=== PATIENT | female | born 1995 | race African-American/Black ===

== ENCOUNTER 2019-10-07 15:17 | Emergency (ER) | payer OTHER, SELFPAY ==
[2019-10-07 15:20] VITALS: BP 126/58; PULSE 76; RESP 12; TEMP 36.8; O2SAT 99
--- NOTE | 2019-10-07 15:25 | ED.GENADULT ---
HPI - General Adult General Chief complaint: Vaginal Bleeding Stated complaint: thinks miscarrying Time Seen by Provider: 10/07/19 15:23 Source: patient Mode of arrival: Ambulatory Limitations: no limitations History of Present Illness HPI narrative: 24-year-old female at approximately 6 weeks EGA [place] [employer] [place] States that yesterday she started having pink vaginal bleeding and then turned and a brown vaginal bleeding. She states that this morning had increase in cramping and bleeding with clots as much as a menstrual cycle. Here because she thinks she is having a miscarriage. Review of Systems Constitutional Constitutional: Denies fever(s) and Denies headache(s) ENT Ears, Nose, Mouth, and Throat: Denies headache(s) Cardiovascular Cardiovascular: Denies chest pain and Denies dyspnea Respiratory Respiratory: Denies dyspnea Gastrointestinal Gastrointestinal: Reports cramping, Denies nausea and Denies vomiting Genitourinary Genitourinary: Denies dysuria and Reports vaginal discharge Musculoskeletal Musculoskeletal: Denies back pain, Denies myalgias and Denies arthralgias Integumentary/Breasts Skin/Breast: Denies lesions and Denies rash Neurologic Neurologic: Denies behavioral changes and Denies headache(s) Psychiatric Psychiatric: Denies behavioral changes Hematologic/Lymphatic Hematologic/Lymphatic: Denies easy bleeding and Denies easy bruising Patient History Medical History Healthy adult (Acute) Social History Smoking Status: Never smoker Exam Initial Vital Signs Initial Vital Signs: Vital Signs Temperature 98.2 F 10/07/19 15:20 Pulse Rate 76 10/07/19 15:20 Respiratory Rate 12 10/07/19 15:20 Blood Pressure 126/58 L 10/07/19 15:20 Pulse Oximetry 99 10/07/19 15:20 Const General: cooperative, comfortable, well developed and well groomed Limitations: mental status not altered HENMT Head: normal to inspection and normocephalic Resp Effort & Inspection: normal respiratory effort Cardio Rate: regular rate GI Inspection: non-distended Palpation: soft, No firm and No tender Back/Spine/Pelvis Back: No CVA tenderness Skin Lesions: no lesions Rashes: no rashes Neuro General: alert and awake Cognition: normal cognition Speech: speech normal Extrem General: normal to inspection and capillary refill normal Psych Appearance: grossly normal and well kempt Scores GCS [place] coma scale eye opening: Spontaneous [place] coma scale verbal response: Orientated [place] coma scale motor response: Obey commands [place] coma scale total score: 15 Course Orders Ordered: ED Orders 10/07/19 15:24 OB <= 14 weeks fetus Stat 10/07/19 15:39 ABO RH Type Stat Complete Blood Count AUTO DIFF Stat HCG Quantitative /Beta subunit Stat Vital Signs Vital signs: Vital Signs - 8 hr 10/07/19 15:20 Temperature 98.2 F Pulse Rate 76 Respiratory Rate 12 Blood Pressure 126/58 L Pulse Oximetry 99 Medical Decision Making Lab Data Lab results reviewed: Yes I reviewed the patient's lab results. Result diagrams: 10/07/19 15:39 Labs: Lab Results 10/07/19 10/07/19 10/07/19 Range/Units 15:39 15:39 15:39 WBC 8.7 (4.5-11.0) X10^3/uL RBC 4.24 (4.0-5.2) X10^6/uL Hgb 13.0 (12.0-16.0) g/dL Hct 39.2 (36-46) % MCV 92.4 (80-100) fL MCH 30.5 (26-34) PG MCHC 33.1 (30-36) % RDW 13.5 (11.6-14.8) % Plt Count 356 (150-400) X10^3/uL Neut % (Auto) 67.2 (50-75) % Lymph % (Auto) 21.1 L (25-40) % [place] % (Auto) 8.9 (3-14) % Eos % (Auto) 2.0 (2-4) % Baso % (Auto) 0.8 (0-2) % Neut # (Auto) 5900 (3293-7334) /uL Lymph # (Auto) 1800 (6141-7377) /uL [place] # (Auto) 800 (0-900) /uL Eos # (Auto) 200 (0-450) /uL Baso # (Auto) 100 (0-100) /uL HCG, Quant 1119.5 mIU/mL Blood Type O Positive Point of Care Testing Test Results Positive Point of care testing: Point of Care Testing Test Results Positive Imaging Data US - OB: Radiologist's Impression: [address] [address] Ultrasound Report Signed Patient: Amilcar Barahona TMR#: [id number] : 1995Acct:[id number] Age/Sex: 24 / FDate of Service: 10/07/19 Loc: ED Accession Number: [id number] Procedure: US OB <= 14 weeks fetus Ordering Provider: Brenden Moe D.O. PROCEDURE: US OB <= 14 WEEKS FETUS INDICATIONS: VAGINAL BLEEDING POTENTIAL MISCARRIAGE OUTSIDE/PRIOR DATING DATA: Last menstrual period (LMP): 08/13/19. LMP-based estimated date of delivery (MILLY): 05/22/20. TECHNIQUE: Real-time scanning was performed of the fetus and maternal pelvic organs, with image documentation. Endovaginal scanning was also performed to better visualize the fetus and maternal ovaries. COMPARISON: None. FINDINGS: Maternal organs: The uterus measures 9.3 x 4.1 x 4.9 cm. The endometrium is thickened, measuring up to 1.5 cm in the lower uterine segment. There is mild internal heterogeneity within the endometrium with a small hypoechoic component, but no discrete gestational sac is visualized. No internal vascularity within the endometrium on color Doppler interrogation. There are small nabothian cysts. The right ovary measures 5.0 x 2.8 x 2.8 cm and the left ovary measures 2.4 x 1.7 x 1.7 cm. There is a thickwalled in the right ovary measuring up to 1.7 x 1.5 x 1.4 cm. There is also a 2nd thickwalled cystic structure in the right ovary measuring up to 2.2 x 1.8 x 2.0 cm. No other discrete adnexal masses identified. IMPRESSION: 1. No intrauterine gestational sac identified. Heterogeneous thickening of the endometrium demonstrated which may reflect a spontaneous in progress. 2. 2 thickwalled cystic structures demonstrated in the right ovary. The findings are nonspecific and one of the structures may represent a corpus luteal cyst. However, an ectopic cannot be excluded. Recommend continued followup clinically and a repeat study if indicated. Dictated by: Luis Pimentel M.D. on 10/07/2019 at 16:48 Approved by: Luis Pimentel M.D. on 10/07/2019 at 16:54 MDM Narrative Medical decision making narrative: Rh positive. Patient's beta hCG level is below the discriminatory zone however the other findings on the ultrasound are concerning for a threatened miscarriage. I did inform the patient that it is important that she be followed up in 48 hours for repeat blood draw to make sure that the level is decreasing. We did discuss return precautions and follow-up instructions. Informed her that if [place] repeat exam performed that she should return to the emergency department. She expressed understanding and agreement. Discharge Plan Departure Patient Disposition: Home Clinical Impression: Threatened miscarriage Instructions: Dealing With Miscarriage, DI for Miscarriage Activity Restrictions/Additional Instructions: Your exam head ultrasound and labs today is concerning for a miscarriage. It is important that you follow-up in 48 hours for a repeat blood draw. [place] If you cannot get in to see your primary provider please return to the emergency department. Return to the emergency department sooner for any increasing pain, bleeding multiple pads an hour for multiple hours, lightheadedness, or any other new or worsening symptoms
[2019-10-07 15:50] LABS: Add Manual Diff / Slide Review NO; Basophils Absolute Auto 100 /uL (0-100); Basophils Percent Auto 0.8 % (0-2); Eosinophils Absolute Auto 200 /uL (0-450); Hematocrit 39.2 % (36-46); Lymphocytes Absolute Auto 1800 /uL (1100-4500); Lymphocytes Percent Auto 21.1 % (25-40); Mean Corpuscular HGB Conc 33.1 % (30-36); Mean Corpuscular Hemoglobin 30.5 PG (26-34); Mean Corpuscular Volume 92.4 fL (80-100); Monocytes Absolute Auto 800 /uL (0-900); Monocytes Percent Auto 8.9 % (3-14); Neutrophils Absolute Auto 5900 /uL (1500-7000); Neutrophils Percent Auto 67.2 % (50-75); Platelet Count 356 X10^3/uL (150-400); Red Blood Cell Count 4.24 X10^6/uL (4.0-5.2); Red Cell Distribution Width 13.5 % (11.6-14.8); White Blood Cell Count 8.7 X10^3/uL (4.5-11.0)
[2019-10-07 16:21] LABS: HCG Quantitative /Beta subunit 1119.5 mIU/mL
[2019-10-07 17:29] VITALS: BP 122/78; PULSE 78; RESP 17; O2SAT 98
== END 2019-10-07 17:30 | disposition home or self-care (01) ==
PROVIDERS: Emergency Provider Emergency Medicine
DX: O20.0 Threatened abortion (principal); Z3A.01 Less than 8 weeks gestation of pregnancy
CPT/HCPCS: 36415; 76801; 76817; 81025; 84702; 85025; 86900; 86901; 99284

== ENCOUNTER 2020-05-14 14:41 | Emergency (ER) | payer OTHER, SELFPAY ==
[2020-05-14 14:52] VITALS: BP 142/71; PULSE 84; RESP 12; TEMP 36.2; O2SAT 100; BMI 41.3
--- NOTE | 2020-05-14 15:03 | DI.US.S_ITS ---
PROCEDURE: US OB <= 14 WEEKS FETUS INDICATIONS: CRAMPING, BLEEDING OUTSIDE/PRIOR DATING DATA: Last menstrual period (LMP): 02/26/2020 LMP-based estimated date of delivery (MILLY): 12/02/2020 First dating scan (date and location): [facility], 05/14/2020 Estimated date of delivery (MILLY) from first dating scan: Not applicable TECHNIQUE: Real-time scanning was performed of the fetus and maternal pelvic organs, with image documentation. Endovaginal scanning was also performed to better visualize the fetus and maternal ovaries. COMPARISON: [facility], , OB <= 14 WEEKS FETUS, 10/07/2019, 15:54. FINDINGS: Embryo: An intrauterine gestational sac is seen, with a pole seen that measures up to 1.5 cm in length, which corresponds to an estimated gestational age of 7 weeks 5 days. No cardiac activity is seen, despite multiple attempts. Measurement variability in dating: +/- 4 weeks by LMP, +/- 7 days by mean sac diameter (use before 6 weeks gestation if crown-rump length not able to be measured), +/- 5 days by crown-rump length (up to 8 weeks 6 days gestation), +/- 7 days by crown-rump length (up to 13 weeks 6 days gestation). Maternal organs: The right ovary is not seen. The left ovary is unremarkable. Limited images through the kidneys demonstrate no hydronephrosis. IMPRESSION: demise, with a nonviable intrauterine gestation, without cardiac activity. Dictated by: Jonathan Judge M.D. on 05/14/2020 at 15:04 Approved by: Jonathan Judge M.D. on 05/14/2020 at 15:06
[2020-05-14 15:13] LABS: Appearance Urine UA CLOUDY; Bilirubin Urine UA NEGATIVE (NEGATIVE); Color Urine UA RED; Glucose Urine UA NEGATIVE (Negative); Ketones Urine UA NEGATIVE (NEGATIVE); Leukocyte Esterase Urine UA NEGATIVE (NEGATIVE); Nitrite Urine UA NEGATIVE (Negative); Occult Blood Urine UA 3+ (Negative); Protein Urine UA 1+ (Negative); Urobilinogen Urine UA 0.2 E.U./dL (0.2)
[2020-05-14 15:15] LABS: pH Urine UA 7.5 (4.5-8.0)
[2020-05-14 15:20] LABS: Amorphous Sediment Urine 1+; Bacteria Urine Few (2-10); Culture Indicated Urine Cult Not Indicated; RBC Urine >100/HPF (0-5/HPF); Squamous Epithelial Cell Urine 1-5 /HPF (0-5/HPF); WBC Urine 0-1/HPF (0-5/HPF)
--- NOTE | 2020-05-14 15:22 | ED.GENADULT ---
HPI - General Adult General Chief complaint: OB/Uterine Contractions Stated complaint: 10WKS , SEVERE CRAMPS Time Seen by Provider: 05/14/20 15:02 Source: patient Mode of arrival: Ambulatory Limitations: no limitations History of Present Illness HPI narrative: Otherwise healthy 24-year-old at approximately 10 weeks EGA based off of last menstrual cycle the tear for evaluation of abdominal cramping that started this morning and then bright red blood per the vagina this afternoon. She also states that her cramping has continued throughout the day. Denies any urinary or GI symptoms. States she had a miscarriage earlier this year which she passed spontaneously without any intervention. Related Data Allergies Allergy/AdvReac Type Severity Reaction Status Date / Time No Known Drug Allergies Allergy Verified 05/14/20 14:56 Review of Systems Constitutional Constitutional: Denies fever(s) Cardiovascular Cardiovascular: Denies chest pain and Denies dyspnea Respiratory Respiratory: Denies dyspnea Gastrointestinal Gastrointestinal: Reports cramping, Denies nausea and Denies vomiting Genitourinary Genitourinary: Denies dysuria Genitourinary: Denies dysuria Musculoskeletal Musculoskeletal: Denies arthralgias and Denies myalgias Integumentary/Breasts Skin/Breast: Denies rash Neurologic Neurologic: Denies behavioral changes Psychiatric Psychiatric: Denies behavioral changes Hematologic/Lymphatic Hematologic/Lymphatic: Denies easy bleeding and Denies easy bruising Allergic/Immunologic Allergic/Immunologic: Denies urticaria Patient History Medical History (Updated 05/14/20 @ 16:32 by Brenden Moe DO) Healthy adult Social History Smoking Status: Never smoker Smoking Status: Never smoker alcohol intake frequency: 0-2 drinks per day Substance Use Type: does not use Exam Initial Vital Signs Initial Vital Signs: Vital Signs Temperature 97.2 F L 05/14/20 14:52 Pulse Rate 84 05/14/20 14:52 Respiratory Rate 12 05/14/20 14:52 Blood Pressure 142/71 H 05/14/20 14:52 Pulse Oximetry 100 05/14/20 14:52 Const General: cooperative and comfortable Limitations: mental status not altered HENMT Head: normal to inspection and normocephalic Resp Effort & Inspection: normal respiratory effort Cardio Rate: regular rate GI Inspection: non-distended Skin Lesions: no lesions Rashes: no rashes Neuro General: patient alert and patient awake Cognition: normal cognition Speech: speech normal Extrem General: normal to inspection Psych Appearance: grossly normal and well kempt Course Orders Ordered: ED Orders 05/14/20 14:51 Urinalysis and Microscopic Stat Urine Culture Stat 05/14/20 15:03 US OB <= 14 weeks fetus Stat 05/14/20 15:30 ABO RH Type Stat Basic Metabolic Panel Stat Complete Blood Count AUTO DIFF Stat HCG Quantitative /Beta subunit Stat Discontinued Medications Acetaminophen (Acetaminophen 325 Mg Tablet) 650 mg PO NOW ONE Stop: 05/14/20 16:08 Last Admin: 05/14/20 16:16 Dose: 650 mg Documented by: Vital Signs Vital signs: Vital Signs - 8 hr 05/14/20 14:52 05/14/20 15:58 Temperature 97.2 F L Pulse Rate 84 80 Respiratory Rate 12 16 Blood Pressure 142/71 H 134/79 Pulse Oximetry 100 98 Medical Decision Making Lab Data Lab results reviewed: Yes I reviewed the patient's lab results. Result diagrams: 05/14/20 15:30 05/14/20 15:30 Labs: Lab Results 05/14/20 05/14/20 05/14/20 Range/Units 14:51 15:30 15:30 WBC 8.9 (4.5-11.0) X10^3/uL RBC 4.31 (4.0-5.2) X10^6/uL Hgb 13.3 (12.0-16.0) g/dL Hct 39.0 (36-46) % MCV 90.6 (80-100) fL MCH 30.8 (26-34) PG MCHC 34.0 (30-36) % RDW 13.2 (11.6-14.8) % Plt Count 330 (150-400) X10^3/uL Neut % (Auto) 64.9 (50-75) % Lymph % (Auto) 21.0 L (25-40) % [place] % (Auto) 9.7 (3-14) % Eos % (Auto) 3.2 (2-4) % Baso % (Auto) 1.2 (0-2) % Neut # (Auto) 5800 (6634-8809) /uL Lymph # (Auto) 1900 (1400-9721) /uL [place] # (Auto) 900 (0-900) /uL Eos # (Auto) 300 (0-450) /uL Baso # (Auto) 100 (0-100) /uL Sodium 137 (137-145) mmol/L Potassium 3.7 (3.4-5.1) mmol/L Chloride 104 (98-107) mmol/L Carbon Dioxide 28 (22-32) mmol/L BUN 9 (7-17) mg/dL Creatinine 0.52 (0.52-1.04) mg/dL Estimated GFR > 60.0 (>60) mL/min BUN/Creatinine Ratio 17.3 (6-22) Glucose 100 (70-100) mg/dL Calcium 9.3 (8.4-10.2) mg/dL HCG, Quant 22602 mIU/mL Urine Color Red Urine Appearance Cloudy Urine pH 7.5 (4.5-8.0) Ur Specific [place] 1.020 (1.000-1.035) Urine Protein 1+ H (Negative) Urine Glucose (UA) Negative (Negative) g/dL Urine Ketones Negative (NEGATIVE) Urine Occult Blood 3+ H (Negative) Urine Nitrate Negative (Negative) Urine Bilirubin Negative (NEGATIVE) Urine Urobilinogen 0.2 (0.2) E.U./dL Ur Leukocyte Esterase Negative (NEGATIVE) Urine RBC >100/hpf H (0-5/HPF) Urine WBC 0-1/hpf (0-5/HPF) Ur Squamous Epith Cells 1-5 /hpf (0-5/HPF) Amorphous Sediment 1+ Urine Bacteria Few (2-10) H (None) Ur Culture Indicated? Cult not indicated Blood Type 05/14/20 Range/Units 15:30 WBC (4.5-11.0) X10^3/uL RBC (4.0-5.2) X10^6/uL Hgb (12.0-16.0) g/dL Hct (36-46) % MCV (80-100) fL MCH (26-34) PG MCHC (30-36) % RDW (11.6-14.8) % Plt Count (150-400) X10^3/uL Neut % (Auto) (50-75) % Lymph % (Auto) (25-40) % [place] % (Auto) (3-14) % Eos % (Auto) (2-4) % Baso % (Auto) (0-2) % Neut # (Auto) (9541-8999) /uL Lymph # (Auto) (5426-9958) /uL [place] # (Auto) (0-900) /uL Eos # (Auto) (0-450) /uL Baso # (Auto) (0-100) /uL Sodium (137-145) mmol/L Potassium (3.4-5.1) mmol/L Chloride (98-107) mmol/L Carbon Dioxide (22-32) mmol/L BUN (7-17) mg/dL Creatinine (0.52-1.04) mg/dL Estimated GFR (>60) mL/min BUN/Creatinine Ratio (6-22) Glucose (70-100) mg/dL Calcium (8.4-10.2) mg/dL HCG, Quant mIU/mL Urine Color Urine Appearance Urine pH (4.5-8.0) Ur Specific [place] (1.000-1.035) Urine Protein (Negative) Urine Glucose (UA) (Negative) g/dL Urine Ketones (NEGATIVE) Urine Occult Blood (Negative) Urine Nitrate (Negative) Urine Bilirubin (NEGATIVE) Urine Urobilinogen (0.2) E.U./dL Ur Leukocyte Esterase (NEGATIVE) Urine RBC (0-5/HPF) Urine WBC (0-5/HPF) Ur Squamous Epith Cells (0-5/HPF) Amorphous Sediment Urine Bacteria (None) Ur Culture Indicated? Blood Type O Positive Imaging Data US - OB: Radiologist's Impression: [address] [id number] ReportSigned Patient: Amilcar Barahona TMR#: [id number]: 1995Acct:[id number]/Sex: 24 / FDate of Service: 05/14/20Loc: EDAccession Number: [id number] Procedure: US OB <= 14 weeks fetus Ordering Provider: Brenden Moe D.O. PROCEDURE: US OB <= 14 WEEKS FETUS INDICATIONS: CRAMPING, BLEEDING OUTSIDE/PRIOR DATING DATA: Last menstrual period (LMP): 02/26/2020 LMP-based estimated date of delivery (MILLY): 12/02/2020 First dating scan (date and location): [facility], 05/14/2020 Estimated date of delivery (MILLY) from first dating scan: Not applicable TECHNIQUE: Real-time scanning was performed of the fetus and maternal pelvic organs, with image documentation. Endovaginal scanning was also performed to better visualize the fetus and maternal ovaries. COMPARISON: [facility], , OB <= 14 WEEKS FETUS, 10/07/2019, 15:54. FINDINGS: Embryo: An intrauterine gestational sac is seen, with a pole seen that measures up to 1.5 cm in length, which corresponds to an estimated gestational age of 7 weeks 5 days. No cardiac activity is seen, despite multiple attempts. Measurement variability in dating: +/- 4 weeks by LMP, +/- 7 days by mean sac diameter (use before 6 weeks gestation if crown-rump length not able to be measured), +/- 5 days by crown-rump length (up to 8 weeks 6 days gestation), +/- 7 days by crown-rump length (up to 13 weeks 6 days gestation). Maternal organs: The right ovary is not seen. The left ovary is unremarkable. Limited images through the kidneys demonstrate no hydronephrosis. IMPRESSION: demise, with a nonviable intrauterine gestation, without cardiac activity. Dictated by: Jonathan Judge M.D. on 05/14/2020 at 15:04 Approved by: Jonathan Judge M.D. on 05/14/2020 at 15:06 MDM Narrative Medical decision making narrative: Patient is Rh positive. Labs unremarkable. Ultrasound does show was consistent with a miscarriage. I did discuss this with the patient. Informed her with the ultrasound was showing to us. Informed her which she could potentially expect over the next couple days. She stated that she understood this is she had a miscarriage earlier this year. We also discussed return precautions. She is going to talk with her OB doctor on Saturday. She expressed understanding and agreement plan. Discharge Plan Departure Patient Disposition: Home Clinical Impression: Miscarriage Instructions: DI for Miscarriage Activity Restrictions/Additional Instructions: I would expect some more bleeding over the next couple days. If your bleeding more than several pads an hour for several hours in a row please return to the emergency department. Also return if you start having fevers or worsening pain. Contact your OB provider on Saturday for follow-up. Continue to take your vitamins.
[2020-05-14 15:46] LABS: Add Manual Diff / Slide Review NO; Basophils Absolute Auto 100 /uL (0-100); Basophils Percent Auto 1.2 % (0-2); Eosinophils Absolute Auto 300 /uL (0-450); Eosinophils Percent Auto 3.2 % (2-4); Hemoglobin 13.3 g/dL (12.0-16.0); Lymphocytes Absolute Auto 1900 /uL (1100-4500); Mean Corpuscular Hemoglobin 30.8 PG (26-34); Mean Corpuscular Volume 90.6 fL (80-100); Monocytes Absolute Auto 900 /uL (0-900); Monocytes Percent Auto 9.7 % (3-14); Neutrophils Absolute Auto 5800 /uL (1500-7000); Neutrophils Percent Auto 64.9 % (50-75); Platelet Count 330 X10^3/uL (150-400); Red Blood Cell Count 4.31 X10^6/uL (4.0-5.2); Red Cell Distribution Width 13.2 % (11.6-14.8); White Blood Cell Count 8.9 X10^3/uL (4.5-11.0)
[2020-05-14 15:54] LABS: BUN Creatinine Ratio 17.3 (6-22); Blood Urea Nitrogen 9 mg/dL (7-17); Calcium 9.3 mg/dL (8.4-10.2); Carbon Dioxide 28 mmol/L (22-32); Chloride 104 mmol/L (98-107); Estimated Glomerular Filt Rate > 60.0 mL/min (>60); Glucose 100 mg/dL (70-100); HEMOLYSIS < 15 (0-50); Potassium 3.7 mmol/L (3.4-5.1); Sodium 137 mmol/L (137-145)
[2020-05-14 15:58] VITALS: BP 134/79; PULSE 80; RESP 16; O2SAT 98
[2020-05-14 16:11] LABS: HCG Quantitative /Beta subunit 12345 mIU/mL
[2020-05-14] MEDS: ACETAMINOPHEN 325 MG TABLET 650 MG PO (16:16)
== END 2020-05-14 16:42 | disposition home or self-care (01) ==
PROVIDERS: Emergency Provider Emergency Medicine
DX: O03.9 Complete or unspecified spontaneous abortion without complication (principal)
CPT/HCPCS: 36415; 76801; 76817; 80048; 81001; 84702; 85025; 86900; 86901; 87086; 99284

== ENCOUNTER → 2024-07-10 15:40 | Outpatient (CLI) | payer OTHER, SELFPAY ==
[2024-07-10 16:21] LABS: Add Manual Diff / Slide Review NO; Basophils Absolute Auto 0 /uL (0-100); Basophils Percent Auto 0.4 % (0-2); Eosinophils Absolute Auto 200 /uL (0-450); Eosinophils Percent Auto 2.9 % (2-4); Hematocrit 38.6 % (36-46); Lymphocytes Absolute Auto 1500 /uL (1100-4500); Lymphocytes Percent Auto 18.5 % (25-40); Mean Corpuscular HGB Conc 33.7 % (30-36); Mean Corpuscular Hemoglobin 30.3 PG (26-34); Mean Corpuscular Volume 89.9 fL (80-100); Monocytes Absolute Auto 900 /uL (0-900); Monocytes Percent Auto 12.1 % (3-14); Neutrophils Absolute Auto 5200 /uL (1500-7000); Neutrophils Percent Auto 66.1 % (50-75); Platelet Count 311 X10^3/uL (150-400); Red Blood Cell Count 4.29 X10^6/uL (4.0-5.2); Red Cell Distribution Width 12.9 % (11.6-14.8); White Blood Cell Count 7.9 X10^3/uL (4.5-11.0)
[2024-07-10 16:30] LABS: Hemoglobin A1C% w Est Avg Glu 5.3 % (4.0-6.0)
[2024-07-10 16:53] LABS: Natera Collection Specimen Collected
[2024-07-11 05:09] LABS: RPR Screen Non Reactive (Non Reactive)
[2024-07-11 10:11] LABS: Varicella IgG Antibody Reactive (Non Reactive)
== END ==
PROVIDERS: Referring Provider Student in an Organized Health Care Education/Training Program; Visit Provider Student in an Organized Health Care Education/Training Program
DX: O99.210 Obesity complicating pregnancy, unspecified trimester (principal)
CPT/HCPCS: 36415; 80055; 83036; 86787; 86803; 86850; 86900; 86901; 87389

== ENCOUNTER 2024-07-29 08:19 | Emergency (ER) | payer OTHER, SELFPAY ==
[2024-07-29 08:32] VITALS: BP 131/76; PULSE 77; RESP 16; TEMP 36.4; O2SAT 97; BMI 39.8
--- NOTE | 2024-07-29 08:49 | DI.US.S_ITS ---
PROCEDURE: US OB LIMITED INDICATIONS: CRAMPING; HX SAB X 3 OUTSIDE/PRIOR DATING DATA: Last menstrual period (LMP): 04/25/2024. LMP-based estimated date of delivery (MILLY): 01/30/2025. TECHNIQUE: Real-time scanning was performed of the fetus, with image documentation. COMPARISON: None. FINDINGS: A single living intrauterine gestation is present. Presentation: Variable. Placenta: Placental position is anterior, without previa. heart rate: 141 beats per minute. Maternal cervical canal: 2.8 cm cm long. Normal lower limit is 2.5 cm. Clinically estimated gestational age: 13 weeks and 4 days BPD is 2.4 cm, 14 weeks Head circumference is 9.2 cm, 14 weeks and 1 day Abdominal circumference is 7.7 cm, 14 weeks and 1 day Femur length is 1.4 cm, 14 weeks Estimated gestational age from initial scan: 14 weeks and 1 day. IMPRESSION: Single living intrauterine gestation at an ultrasound age of 14 weeks 1 day. This is consistent with the reported LMP Dictated by: Cirilo Choudhary M.D. on 07/29/2024 at 10:04 Approved by: Cirilo Choudhary M.D. on 07/29/2024 at 10:06
[2024-07-29 09:50] VITALS: BP 131/76; PULSE 73; RESP 16; O2SAT 98
--- NOTE | 2024-07-29 19:43 | ED.PREGNANCY ---
HPI - General Chief complaint: OB/Uterine Contractions Stated complaint: 13wks , soreness on breast, cramping Time Seen by Provider: 07/29/24 08:42 History of Present Illness HPI Narrative: 29-year-old female who has a SAB 3 at 13 weeks' gestation. She is here concerned about the status of her because she says her breasts have stopped being tender and she is experienced this previously prior to a miscarriage. She is having some mild cramping she has not have any bleeding that having urinary symptoms or fevers. Related Data Home Medications Medication Instructions Recorded Confirmed cephalexin 500 mg capsule 500 mg PO QID 07/08/24 07/10/24 doxylamine succinate 25 mg tablet 25 - 50 mg PO BID PRN 07/08/24 07/10/24 ketoconazole 2 % shampoo 1 applic topical 2XW 07/08/24 07/10/24 pyridoxine (vitamin B6) 100 mg 100 mg PO BID PRN 07/08/24 07/10/24 tablet Previous Rx's Medication Instructions Recorded ondansetron 4 mg disintegrating 4 mg PO Q6H PRN nausea and 07/10/24 tablet vomiting #20 tabs Allergies Allergy/AdvReac Type Severity Reaction Status Date / Time No Known Drug Allergies Allergy Verified 07/10/24 15:00 Exam Initial Vital Signs Initial Vital Signs: Vital Signs Temperature 97.6 F 07/29/24 08:32 Pulse Rate 77 07/29/24 08:32 Respiratory Rate 16 07/29/24 08:32 Blood Pressure 131/76 07/29/24 08:32 Pulse Oximetry 97 07/29/24 08:32 Oxygen Delivery Method Room Air 07/29/24 08:32 Const Other: No acute distress Resp Other: Normal effort Cardio Other: Normal heart rate Neuro Other: Alert MDM - OB/Uterine Contractions Imaging Data US - OB: Radiologist's Impression: [address] [address] [address] Scan Report Signed Patient: Paty Dickson MR#: [id number] : 12/10/1945 Acct:[id number] Age/Sex: 78 / F Date of Service: 07/29/24 Loc: ED Accession Number: [id number] Procedure: CT facial bones wo con Ordering Provider: Johnathan Ambrosio MD PROCEDURE: CT FACIAL BONES WO CON INDICATIONS: trauma TECHNIQUE: Noncontrast 2.5 mm thick axial images acquired from the mandible through the frontal sinuses, with coronal and sagittal reformatting. For radiation dose reduction, the following was used: automated exposure control, adjustment of mA and/or kV according to patient size. COMPARISON: None. FINDINGS: Image quality: Mildly motion degraded Bones: No definite acute nasal bone fracture. The zygomatic arches appear intact. The pterygoid plates appear intact. The orbital hoskins appear intact. No displaced fracture of the mandible. TMJ arthrosis is present. Sinuses and mastoids: No significant paranasal sinus or mastoid fluid Soft tissues: Left periorbital and facial soft tissue contusions and mild subcutaneous gas. No drainable fluid collections identified. The globes appear intact. Brain: Separately dictated Cervical spine findings separately dictated IMPRESSION: Left facial soft tissue contusions and periorbital swelling. The globes appear intact by CT. No displaced acute fracture is identified. Dictated by: Cirilo Choudhary M.D. on 07/29/2024 at 16:05 Approved by: Cirilo Choudhary M.D. on 07/29/2024 at 16:07 [facility] Narrative Medical decision making narrative: 29-year-old female early on in her 2nd trimester concerned about an impending miscarriage based on loss of breast tenderness. Ultrasound is reassuring. Patient was advised of this and I recommended she follow up with her regular flitch hanger. Presentation did not suggest urinary tract infection or other intra-abdominal process, she has not having any bleeding I considered but at this point do not think that this is a early miscarriage Discharge Plan Departure Patient Disposition: Home Clinical Impression: Pelvic pain affecting Qualifiers: Trimester: second trimester Qualified Code(s): O26.892 - Other specified related conditions, second trimester Activity Restrictions/Additional Instructions: Ultrasound today is reassuring. I recommend that you contact your provider for follow up. Recheck for increasing cramping, bleeding, painful urination fevers or other acute symptoms Prescriptions: No Action ondansetron 4 mg tablet,disintegrating 4 mg PO Q6H PRN (Reason: nausea and vomiting) Qty: 20 2RF cephalexin 500 mg capsule 500 mg PO QID pyridoxine (vitamin B6) 100 mg tablet 100 mg PO BID PRN doxylamine succinate 25 mg tablet 25 - 50 mg PO BID PRN ketoconazole 2 % shampoo 1 applic topical 2XW Referrals: ProviderMeghan [Primary Care Provider] - Stand Alone Forms: Patient Portal/API/Survey, Work Release Note
== END 2024-07-29 10:02 | disposition home or self-care (01) ==
PROVIDERS: Emergency Provider Emergency Medicine
DX: O26.892 Other specified pregnancy related conditions, second trimester (principal); R10.2 Pelvic and perineal pain; Z3A.14 14 weeks gestation of pregnancy
CPT/HCPCS: 76815; 99281; 99283

== ENCOUNTER → 2024-09-07 10:49 | Outpatient (CLI) | payer OTHER, SELFPAY ==
--- NOTE | 2024-09-07 10:50 | DI.US.S_ITS ---
PROCEDURE: US OB >= 14 WEEKS FETUS INDICATIONS: 20 week anatomy scan OUTSIDE/PRIOR DATING DATA: Last menstrual period (LMP): 04/25/2024. LMP-based estimated date of delivery (IMLLY): 01/30/2025. First dating scan (date and location): Unknown. Estimated date of delivery (MILLY) from first dating scan: Unknown. The calculations are made using the clinical MILLY of 01/30/2025. TECHNIQUE: Real-time scanning was performed of the fetus, with image documentation and biometric measurements. COMPARISON: [facility], OB LIMITED, 07/29/2024, 9:10. FINDINGS: General: A single living intrauterine gestation is present. Presentation: Vertex. Placenta: Placental position is anterior , without previa. Amniotic fluid index: 16.8 cm, normal range is 5-24 cm. Single deepest vertical pocket is 6.5 cm. heart rate: 141 beats per minute. Maternal cervical canal: 3.8 cm long. Normal lower limit is 2.5 cm. biometrics: Biparietal diameter: 4.4 cm 19 weeks 3 days Head circumference: 16.1 cm 18 weeks 6 days Abdominal circumference: 13.6 cm 19 weeks 0 days Femur length: 3.0 cm 19 weeks 2 days Clinically estimated gestational age: 19 weeks 2 days Composite gestational age from present scan: 19 weeks 1 day Estimated weight and percentile: 275 g 36th percentile Anatomic survey: Neuro: Ventricles are non-dilated at less than 10 mm. Cisterna magna is normal at 3-11 mm. Cerebellum is normal in size and morphology. Nuchal skin fold: Normal at less than 6 mm between 14-21 weeks gestational age. Face: Nose and lips, facial profile are not well seen. Spine: Not well seen. Heart: 4-chambered heart is present, with normal ventricular outflow tracts. Diaphragm: Diaphragm is intact. Stomach: Left-sided stomach is present. Kidneys: No hydronephrosis. Normal is less than 5 mm in 2nd trimester, less than 7 mm in 3rd trimester. Cord: 3-vessel cord has orthotopic insertion. Bladder: Normal in size. Extremities: All 4 extremities identified. IMPRESSION: Single live intrauterine with gestational age today of 19 weeks 1 day. Spine as well as nose/lips/facial profile are not well seen. Recommend interval follow-up for further evaluation. We strive to produce accurate, complete, and clear reports of imaging services. To assist us in improving patient care, this report was composed using standard report templates and voice recognition software. Therefore, it may contain abnormal punctuation, insertions and/or omissions. Occasional wrong-word or sound-alike substitutions may occur. Though we review the report and make efforts to correct it, we do recommend that the report be read carefully in proper context to recognize any text inaccuracies. Dictated by: Bina Mehta M.D. on 09/07/2024 at 16:48 Approved by: Bina Mehta M.D. on 09/07/2024 at 16:49
== END ==
PROVIDERS: Referring Provider Student in an Organized Health Care Education/Training Program; Visit Provider Student in an Organized Health Care Education/Training Program
DX: Z34.92 Encounter for supervision of normal pregnancy, unspecified, second trimester (principal); Z3A.19 19 weeks gestation of pregnancy
CPT/HCPCS: 76811

== ENCOUNTER → 2024-09-17 11:58 | Outpatient (CLI) | payer OTHER, SELFPAY ==
--- NOTE | 2024-09-17 11:59 | DI.US.S_ITS ---
PROCEDURE: US OB FOLLOW UP INDICATIONS: Incomplete anatomy scan OUTSIDE/PRIOR DATING DATA: Last menstrual period (LMP): 04/25/24 LMP-based estimated date of delivery (MILLY): 01/30/25. TECHNIQUE: Real-time scanning was performed of the fetus, with image documentation. Endovaginal scanning: Not needed COMPARISON: [facility], , OB >= 14 WEEKS FETUS, 09/07/2024, 11:15. FINDINGS: A single living intrauterine gestation is present. Presentation: Transverse head right Placenta: Placental position is anterior, without previa. Amniotic fluid index: 15.0 cm, normal range is 5-24 cm. Single deepest vertical pocket is 4.6 cm. heart rate: 141 beats per minute. Maternal cervical canal: 5.3 cm long. Normal lower limit is 2.5 cm. Clinically estimated gestational age: 20 weeks 5 days. Completion of anatomic survey was accomplished, previously poorly visualized facial area and spine was well visualized and appears normal today. IMPRESSION: Completion of anatomic survey, with reference to the recent study 09/07/24. No anomaly found. Dictated by: Russell Casanova M.D. on 09/17/2024 at 12:49 Approved by: Russell Casanova M.D. on 09/17/2024 at 12:53
== END ==
PROVIDERS: Referring Provider Student in an Organized Health Care Education/Training Program; Visit Provider Student in an Organized Health Care Education/Training Program
DX: Z36.89 Encounter for other specified antenatal screening (principal); Z3A.20 20 weeks gestation of pregnancy
CPT/HCPCS: 76816

== ENCOUNTER → 2024-10-05 09:50 | Outpatient (CLI) | payer OTHER, SELFPAY ==
[2024-10-06 14:37] LABS: Candida species Negative (Negative); Gardnerella vaginalis Positive (Negative); Trichomoas vaginalis Negative (Negative)
== END ==
PROVIDERS: Visit Provider Student in an Organized Health Care Education/Training Program
DX: N89.8 Other specified noninflammatory disorders of vagina (principal)
CPT/HCPCS: 87480; 87510; 87660

== ENCOUNTER → 2024-11-02 13:25 | Outpatient (CLI) | payer OTHER, SELFPAY ==
[2024-11-02 17:02] LABS: Hematocrit 33.9 % (36-46); Hemoglobin 11.5 g/dL (12.0-16.0)
[2024-11-02 17:22] LABS: GTT (PREG) 1 Hour PP 50gm Dose 138 mg/dL (76-139)
== END ==
PROVIDERS: Referring Provider Student in an Organized Health Care Education/Training Program; Visit Provider Student in an Organized Health Care Education/Training Program
DX: Z13.1 Encounter for screening for diabetes mellitus (principal); Z13.0 Encounter for screening for diseases of the blood and blood-forming organs and certain disorders involving the immune mechanism
CPT/HCPCS: 82950; 85014; 85018

== ENCOUNTER → 2024-11-23 14:21 | Outpatient (CLI) | payer OTHER, SELFPAY ==
--- NOTE | 2024-11-23 14:22 | DI.US.S_ITS ---
PROCEDURE: US OB LIMITED INDICATIONS: OBESITY - GROWTH OUTSIDE/PRIOR DATING DATA: Working MILLY: 01/30/2025 TECHNIQUE: Real-time scanning was performed of the fetus, with image documentation and biometric measurements. Endovaginal scanning: Not performed COMPARISON: [facility], OB LIMITED, 07/29/2024, 9:10. FINDINGS: General: A single living intrauterine gestation is present. Presentation: Vertex. Placenta: Placental position is anterior , without previa. Amniotic fluid index: 17.1 cm, normal range is 5-24 cm. Single deepest vertical pocket is 5.4 cm. heart rate: 127 beats per minute. Maternal cervical canal: 5.6 cm long. Normal lower limit is 2.5 cm. biometrics: Biparietal diameter: 7.5 centimeters, 30 weeks Head circumference: 27.5 centimeters, 30 weeks Abdominal circumference: 26.7 centimeter, 30 weeks 5 days Femur length: 5.6 centimeters, 29 weeks 4 days Clinically estimated gestational age: 30 weeks 2 days Composite gestational age from present scan: 30 weeks 1 day Estimated weight and percentile: 1535 grams, 35 percentile Other: Not applicable. IMPRESSION: Single living intrauterine at 30 weeks 2 days, MILLY of 01/30/2025. Estimated weight of 1535 grams, 35th percentile . We strive to produce accurate, complete, and clear reports of imaging services. To assist us in improving patient care, this report was composed using standard report templates and voice recognition software. Therefore, it may contain abnormal punctuation, insertions and/or omissions. Occasional wrong-word or sound-alike substitutions may occur. Though we review the report and make efforts to correct it, we do recommend that the report be read carefully in proper context to recognize any text inaccuracies. Dictated by: Lane Hope M.D. on 11/23/2024 at 16:28 Approved by: Lane Hope M.D. on 11/23/2024 at 16:29
== END ==
PROVIDERS: Referring Provider Student in an Organized Health Care Education/Training Program; Visit Provider Student in an Organized Health Care Education/Training Program
DX: O99.210 Obesity complicating pregnancy, unspecified trimester (principal); Z3A.30 30 weeks gestation of pregnancy
CPT/HCPCS: 76815

== ENCOUNTER 2024-12-15 20:50 | Outpatient (CLI) | payer OTHER, SELFPAY ==
[2024-12-15 21:51] LABS: Appearance Urine UA CLOUDY; Bilirubin Urine UA NEGATIVE (NEGATIVE); Color Urine UA YELLOW; Glucose Urine UA NEGATIVE (Negative); Ketones Urine UA NEGATIVE (NEGATIVE); Leukocyte Esterase Urine UA NEGATIVE (NEGATIVE); Nitrite Urine UA NEGATIVE (Negative); Occult Blood Urine UA TRACE-INTACT (Negative); Protein Urine UA NEGATIVE (Negative); Specific Gravity Urine UA 1.025 (1.000-1.035)
[2024-12-15 22:01] LABS: Bacteria Urine Few (2-10); RBC Urine None Seen (0-5/HPF); Urine Volume 10mL (spun); WBC Urine 0-1/HPF (0-5/HPF)
[2024-12-15 22:02] LABS: Amorphous Sediment Urine 2+; Culture Indicated Urine Cult Not Indicated; Squamous Epithelial Cell Urine 1-5 /HPF (0-5/HPF)
--- NOTE | 2024-12-15 22:03 | P.TNLD_ITS ---
Visit Information Visit Information Date of evaluation: 12/15/24 On-call OB Provider: Skye Fuentes Reason for Evaluation: Yes pre-term labor Comments/Additional reasons for admission: Pt reported increased pain with tightening of her lower abdomen over the last 1- 2 days. Denies leaking fluid or vaginal bleeding, and feeling regular movement. Vital Signs Vital Signs: BP 116/57, P 91, T 35.8 [facility] Medical History (Updated 12/15/24 @ 22:05 by Skye Fuentes DO) Keloid scar Healthy adult Surgical History (Updated 07/08/24 @ 11:09 by Beth Delcid, RN) [place] teeth extracted Previous section Family History (Updated 07/08/24 @ 11:15 by Beth Delcid, RN) Mother Hypertension Grandmother Benign tumor Family/Other Diabetes mellitus Aunt Diabetes mellitus Family/Other Down syndrome Aunt Cervical cancer Social History marital status: number of children: 1 household members: spouse and children lives independently: Yes caregiver/support person: Yes housing: [facility] ([employer]) pets and animals: Yes (cat, dog) education level: college (some college) 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) special leonila needs: No [facility] seatbelt use: always water heater temp set < 120 deg: Yes working smoke detector in home: Yes fire extinguisher in home: Yes carbon monox detector in home: Yes firearms in home: Yes firearms unloaded and locked: Yes do you feel safe at home: Yes second hand exposure: Yes ( smokes outdoors) alcohol intake: former (~2/week when not ) substance use type: does not use during the past year weight has: decreased > 10 lbs (intentional 40lb loss, gained back 10) well-balanced diet: rarely or never daily servings fruits/ve-1 (1-2) caffeine: Yes (very occasional) Type(s) of exercise: walking and weight lifting Objective Labs Labs: Laboratory Results - last 24 hr 12/15/24 21:35 Urine Color Yellow Urine Appearance Cloudy Urine pH 6.0 Ur Specific [place] 1.025 Urine Protein Negative Urine Glucose (UA) Negative Urine Ketones Negative Urine Occult Blood Trace-intact Urine Nitrate Negative Urine Bilirubin Negative Urine Urobilinogen 1.0 Ur Leukocyte Esterase Negative Urine RBC None seen Urine WBC 0-1/hpf Ur Squamous Epith Cells 1-5 /hpf Amorphous Sediment 2+ Urine Bacteria Few (2-10) H Ur Culture Indicated? Cult not indicated Vol Urine Centrifuged 10ml (spun) Evaluation Evaluation Baseline heart rate: 130 Variability: Moderate (6-25) monitor accelerations: Present Monitor Decelerations: Absent Category of Tracing: Reactive Cervical dilation (cm): 0 Cervical effacement (%): 0 station: -3 Diagnosis, Plan/Disposition Final Diagnosis (1) Threatened labor: Status: Acute (2) 33 weeks gestation of : Status: Acute Plan/Disposition Plan: 29yo at 33+3wks presented to triage for rule-out labor. Reactive NST with 1-2 contractions seen on the toco after >45min of monitoring. Cervical exam was CL/L/H, with a negative FFN. -patient discharged to home with routine precautions -follow-up in the office as scheduled OB Disposition: home
[2024-12-15 22:34] LABS: Fetal Fibronectin Negative
== END 2024-12-15 22:47 | disposition home or self-care (01) ==
LOC: LABOR 22:59 → OB 12-16 07:10
PROVIDERS: Referring Provider Student in an Organized Health Care Education/Training Program; Visit Provider Student in an Organized Health Care Education/Training Program
DX: O47.00 False labor before 37 completed weeks of gestation, unspecified trimester (principal); Z3A.33 33 weeks gestation of pregnancy
CPT/HCPCS: 59025; 81001; 82731; G0378; G0379

== ENCOUNTER → 2025-01-05 09:01 | Outpatient (CLI) | payer OTHER, SELFPAY ==
[2025-01-06 11:26] LABS: Strep Grp B PCR NEG for Grp B Strep
== END ==
PROVIDERS: Visit Provider Student in an Organized Health Care Education/Training Program
DX: Z36.85 Encounter for antenatal screening for Streptococcus B (principal)
CPT/HCPCS: 87653

== ENCOUNTER 2025-01-05 09:22 | Outpatient (CLI) | payer OTHER, SELFPAY ==
--- NOTE | 2025-01-05 13:31 | PM.OBTRLD ---
Visit Information Visit Information Date of evaluation: 01/05/25 Primary OB Provider: Skye Fuentes Reason for Evaluation: Yes non-stress test [facility] Medical History (Updated 01/05/25 @ 13:30 by Skye Fuentes DO) Keloid scar Healthy adult Surgical History (Updated 07/08/24 @ 11:09 by Beth Delcid, RN) [place] teeth extracted Previous section Family History (Updated 07/08/24 @ 11:15 by Beth Delcid, RN) Mother Hypertension Grandmother Benign tumor Family/Other Diabetes mellitus Aunt Diabetes mellitus Family/Other Down syndrome Aunt Cervical cancer Social History marital status: number of children: 1 household members: spouse and children lives independently: Yes caregiver/support person: Yes housing: [facility] ([facility]) pets and animals: Yes (cat, dog) education level: college (some college) 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) special leonila needs: No [facility] seatbelt use: always water heater temp set < 120 deg: Yes working smoke detector in home: Yes fire extinguisher in home: Yes carbon monox detector in home: Yes firearms in home: Yes firearms unloaded and locked: Yes do you feel safe at home: Yes second hand exposure: Yes ( smokes outdoors) alcohol intake: former (~2/week when not ) substance use type: does not use during the past year weight has: decreased > 10 lbs (intentional 40lb loss, gained back 10) well-balanced diet: rarely or never daily servings fruits/ve-1 (1-2) caffeine: Yes (very occasional) Type(s) of exercise: walking and weight lifting Evaluation Evaluation Baseline heart rate: 130 Variability: Moderate (6-25) monitor accelerations: Present Monitor Decelerations: Absent Category of Tracing: Reactive Diagnosis, Plan/Disposition Final Diagnosis (1) Obesity affecting : Status: Acute Plan/Disposition OB Disposition: home
== END 2025-01-05 10:14 | disposition home or self-care (01) ==
LOC: LABOR 09:51 → OB 11:11
PROVIDERS: Referring Provider Student in an Organized Health Care Education/Training Program; Visit Provider Student in an Organized Health Care Education/Training Program
DX: O99.213 Obesity complicating pregnancy, third trimester (principal); E66.09 Other obesity due to excess calories; Z3A.36 36 weeks gestation of pregnancy; Z36.85 Encounter for antenatal screening for Streptococcus B
CPT/HCPCS: 59025; 87653; G0378; G0379

== ENCOUNTER 2025-01-08 10:29 | Outpatient (CLI) | payer OTHER, SELFPAY | END 2025-01-08 11:39 | disposition home or self-care (01) | LOC: LABOR 11:36 → OB 14:15 | PROVIDERS: Referring Provider Student in an Organized Health Care Education/Training Program; Visit Provider Student in an Organized Health Care Education/Training Program | DX: Z03.71 Encounter for suspected problem with amniotic cavity and membrane ruled out (principal); Z3A.36 36 weeks gestation of pregnancy | CPT/HCPCS: G0378; G0379 ==

== ENCOUNTER 2025-01-12 11:21 | Outpatient (CLI) | payer OTHER, SELFPAY | END 2025-01-12 12:15 | disposition home or self-care (01) | LOC: LABOR 12:25 → OB 12:45 | PROVIDERS: Referring Provider Student in an Organized Health Care Education/Training Program; Visit Provider Student in an Organized Health Care Education/Training Program | DX: O47.1 False labor at or after 37 completed weeks of gestation (principal); E66.9 Obesity, unspecified; Z3A.37 37 weeks gestation of pregnancy; Z87.59 Personal history of other complications of pregnancy, childbirth and the puerperium | CPT/HCPCS: 59025; G0378; G0379 ==

== ENCOUNTER 2025-01-19 14:27 | Outpatient (CLI) | payer OTHER, SELFPAY | END 2025-01-19 15:20 | disposition home or self-care (01) | LOC: LABOR 15:20 → OB 01-20 06:33 | PROVIDERS: Referring Provider Student in an Organized Health Care Education/Training Program; Visit Provider Student in an Organized Health Care Education/Training Program | DX: O99.213 Obesity complicating pregnancy, third trimester (principal); O26.893 Other specified pregnancy related conditions, third trimester; J45.909 Unspecified asthma, uncomplicated; O98.313 Other infections with a predominantly sexual mode of transmission complicating pregnancy, third trimester; A60.00 Herpesviral infection of urogenital system, unspecified; O34.219 Maternal care for unspecified type scar from previous cesarean delivery; Z3A.38 38 weeks gestation of pregnancy | CPT/HCPCS: 59025; G0378; G0379 ==

== ENCOUNTER 2025-01-26 07:10 | Inpatient (IN) | payer OTHER, SELFPAY ==
[2025-01-26] VITALS (7 sets, daily range): BP systolic 97–128; BP diastolic 46–60; PULSE 64–85; RESP 18–29; TEMP 36.1–36.7; O2SAT 97–100
[2025-01-26] MEDS: LACTATED RINGERS 1,000 ML 999 ML IV (08:00)
--- NOTE | 2025-01-26 08:47 | PM.OBHP.IH.1 ---
OB HPI Date/Time Date of admission: 01/26/25 Date Patient Seen: 01/26/25 Time Patient Seen: 08:47 History of Present Condition Chief complaint: Repeat MILLY Calculator Estimated Delivery Date Method Current WG Current Estimate 01/30/25 LMP (Certain) 39w 3d Other Estimates 01/28/25 Ultrasound #1 39w 5d : 5 Para: 1 Narrative: 29yo at 39+3wks admitted for planned repeat . She has continued to have painful contractions, but denies leaking fluid or vaginal bleeding. Feeling regular movement. care: good care Dating criteria OB: LMP confirmed by 1st trimester US Ultrasounds: normal mid trimester US Narrative: Ultrasound Ultrasound Details:: Dating US 07/10/24: [place] IUP with CRL 4.41cm (11+1wks), +FCA 127bpm, normal appearing uterus, cervix, left ovary (right not seen) Anatomy US 09/07/24: normal anatomy (after follow-up scan), anterior placenta, EFW 36%ile Expected Delivery Route/Plan Repeat C/S 01/26/25 Specific Issues/Plans (SAB x3) [ x] cfDNA- low risk XX; likely already had carrier screening done with G2 Prior :? [? ] Op Note (done at [facility]) unable to get besides periop notes;? [?x ] scheduled repeat at 39wks (scheduled for 01/26/25) BMI > 40:? [?x ] Hgb A1C- 5.3; [x ] growth sono 28-32wks- EFW 35%ile;? [? 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 Aneesh Assigned to [facility] Indications Operative indications ( section): previous uterine surgery Preadmission Labs Last OB Lab Results: Blood Type O Positive 07/10/24, 15:53 Antibody Screen Negative 07/10/24, 15:53 Hct, (36-46) 33.9 % L 11/02/24, 14:35 Hgb, (12.0-16.0) 11.5 g/dL L 11/02/24, 14:35 Hep Bs Antigen, (NEGATIVE) Negative s/c 07/10/24, 15:53 Hepatitis C Antibody, (NEGATIVE) Negative s/c 07/10/24, 15:53 Rubella Antibody, (>15) 22.0 IU/mL 07/10/24, 15:53 VZV IgG Antibody, (Non Reactive) Reactive 07/10/24, 15:53 Glucose 1 Hr 50 gm, (76-139) 138 mg/dL 11/02/24, 14:35 Hemoglobin A1c, (4.0-6.0) 5.3 % 07/10/24, 15:53 Group B Strep (PCR) Neg for grp b strep 01/05/25, 08:30 Glucose Tolerance Testin hr (negative) -: Chlamydia screen: negative, Gonorrhea screen: negative and Urine: negative -: PAP smear: Normal Genetic Screens: Cell-free DNA: Normal External Labs -: Urine: negative Prior (ies) Past Pregnancies Del. Date GA/Weeks Labor Lgth Wt Sex Route Outcome Anesthesia Place Delv Breastfeed Preg Comp Name 06/24/19 7 spontaneous 05/19/20 ~8 spontaneous 06/11/21 ~39 21 7 lb Male live - full term spinal [facility] 4 months Christopher 02/22/23 ~8 spontaneous Delivery Date: 06/24/19 Last Updated by: Beth Delcid RN passed spontaneously, no complications Delivery Date: 05/19/20 Last Updated by: Beth Delcid RN passed spontaneously, no complications Delivery Date: 06/11/21 Last Updated by: Beth Delcid RN [facility] Delivery Date: 02/22/23 Last Updated by: Beth Delcid RN passed spontaneously, no complications Evaluation Evaluation Baseline heart rate: 130 Variability: Moderate (6-25) monitor accelerations: Present Monitor Decelerations: Absent Contraction Frequency (minutes): 5 Status: Category l PFSH Medical History (Updated 01/05/25 @ 13:30 by Skye Fuentes DO) Keloid scar Healthy adult Surgical History (Updated 07/08/24 @ 11:09 by Beth Delcid RN) [place] teeth extracted Previous section Family History (Updated 07/08/24 @ 11:15 by Beth Delcid RN) Mother Hypertension Grandmother Benign tumor Family/Other Diabetes mellitus Aunt Diabetes mellitus Family/Other Down syndrome Aunt Cervical cancer Social History marital status: number of children: 1 household members: spouse and children lives independently: Yes caregiver/support person: Yes housing: [facility] ([facility]) pets and animals: Yes (cat, dog) education level: college (some college) 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) special leonila needs: No [facility] seatbelt use: always water heater temp set < 120 deg: Yes working smoke detector in home: Yes fire extinguisher in home: Yes carbon monox detector in home: Yes firearms in home: Yes firearms unloaded and locked: Yes do you feel safe at home: Yes Smoking Status: Former smoker second hand exposure: Yes ( smokes outdoors) alcohol intake: former (~2/week when not ) substance use type: does not use during the past year weight has: decreased > 10 lbs (intentional 40lb loss, gained back 10) well-balanced diet: rarely or never daily servings fruits/ve-1 (1-2) caffeine: Yes (very occasional) Type(s) of exercise: walking and weight lifting Meds Home Medications and Allergies Home Medications ?Medication ?Instructions ?Recorded ?Confirmed ?Type ketoconazole 2 % shampoo 1 applic topical 2XW 07/08/24 01/26/25 History vits no.130-ferrous fum 1 tab PO DAILY 12/15/24 01/26/25 History 27 mg iron-folic acid 800 mcg tablet ( Vitamin) valacyclovir 500 mg tablet 500 mg PO BID #60 tabs 01/05/25 01/26/25 Rx Allergies Allergy/AdvReac Type Severity Reaction Status Date / Time No Known Drug Allergies Allergy Verified 01/26/25 08:15 Review of Systems Review of Systems ROS: Yes All systems reviewed with the patient and are negative except as otherwise documented OB Exam Vital signs Blood Pressure: 128/60 Pulse Rate: 85 Temperature: 98.1 F HENMT Head: normal to inspection and normocephalic Eyes General: appearance normal, both eyes and all related structures Resp Effort & Inspection: normal respiratory effort and able to speak in complete sentences Extremities Lower extremity: Yes normal to inspection GI Inspection: normal to inspection Other: gravid, nontender, nondistended Assessment and Plan Assessment and Plan Assessment and Plan narrative: 29yo at 39+3wks admitted for planned repeat . -CBC, T&S on admission -NST on admission -neuraxial anesthesia -GBS neg, 2g Ancef for surgical ppx -PPH risk low -VTE risk low, SCDs with spinal -will move to OR for delivery once all teams ready counseling: It was explained to the patient that a section is a surgery to deliver the baby through an incision in the abdominal wall and uterus.? All procedures can be associated with risk and unforeseen complications, which can be immediate or delayed.? Risks and complications of section include, but are not limited to:? infection of the uterus, pelvic organs, or skin; inadvertent injury to internal organs such as the bowel, bladder, or possibly even the baby; blood loss, transfusion, and/or life-threatening hemorrhage requiring hysterectomy; blood clots in the legs, pelvic organs, or lungs; adverse reaction to medications or anesthesia during surgery; development of placenta accreta spectrum in a subsequent ; and increased risk of section in a subsequent . Time-Based Coding :: [30min] spent with patient and on the chart (including review of chart, obtaining history, exam, reviewing outside data, placing orders, documenting exam and treatment plan, and counseling patient) on [01/26/25].
[2025-01-26] MEDS: CITRIC ACID/SODIUM CITRATE 15 ML SOLUTION 30 ML PO (08:52)
[2025-01-26 08:53] LABS: Add Manual Diff / Slide Review NO; Hematocrit 34.5 % (36-46); Hemoglobin 11.6 g/dL (12.0-16.0); Lymphocytes Absolute Auto 1900 /uL (1100-4500); Mean Corpuscular HGB Conc 33.7 % (30-36); Mean Corpuscular Hemoglobin 29.5 PG (26-34); Mean Corpuscular Volume 87.3 fL (80-100); Platelet Count 252 X10^3/uL (150-400)
[2025-01-26] MEDS: CEFAZOLIN 2 GM/100 ML PREMIX 100 ML IV (09:05)
[2025-01-26] MEDS: ACETAMINOPHEN IV 1,000 MG/100 ML VIAL 400 MG IV (09:20)
--- NOTE | 2025-01-26 09:35 | SUR.OPER ---
Supine on Padded OR bed, head on pillow, safety belt at thigh, arms secured on padded arm boards at <90 degrees abduction. Bump under right buttock. Legs uncrossed with pillow under knees, gel pad to heels, tape over blanket to lower legs.
--- NOTE | 2025-01-26 09:58 | SUR.OPER ---
Viable baby girl born at 0943 on 01/26/[birth year]25.
--- NOTE | 2025-01-26 10:20 | PM.OBCS.1 ---
Operative Date/Time/Diagnoses Date of procedure: 01/26/25 Time of procedure: 09:00 Pre-op diagnosis: 1. Hdez intrauterine gestation at 39+3 weeks 2. History of section 3. Obesity 4. History of herpes simplex virus Post-op diagnosis: same (delivered via repeat ) Procedure & Clinicians Procedure: Repeat low transverse section Same procedure(s) as scheduled: Yes Indications: 29yo at 39+3wks admitted for planned repeat . Surgeon: Skye Fuentes Click Yes if Unassisted: No Powertrain Engineer: Marcy Shannon Reason for Powertrain Engineer: Powertrain Engineer was necessary for timely, efficient, and safe completion of the procedure. Anesthesia Type: Spinal Operative Notes Findings: Normal-appearing uterus and bilateral fallopian tubes and ovaries. Meconium-stained fluid noted with AROM. Delivery productive of a viable female infant in cephalic presentation with APGARs 9/9 and weighing 3091g. Specimen(s): cord blood Intraoperative meds administered: Duramorph, Ketorolac and Pitocin Applied: Catheter Estimated Blood Loss (mL): 700 Blood products transfused: none Procedure in detail: The risks, benefits, indications and alternatives of the procedure were reviewed with the patient and informed consent was obtained. The patient was taken to the operating room where spinal anesthesia was obtained without difficulty and was found to be adequate. Sequential compression devices were placed bilaterally for VTE prophylaxis. She was then prepped and draped in the normal, sterile fashion in the dorsal supine position with a leftward tilt. She received 2g Ancef for surgical prophylaxis. A Pfannenstiel skin incision was then made with the scalpel and carried through to the underlying layer of fascia. The fascia was incised in the midline and the incision extended laterally with the Palomo scissors. The inferior aspect of the fascial incision was grasped with Rayo clamps, elevated, and the underlying rectus muscles were dissected off bluntly, aided with Palomo scissors. Attention was then turned to the superior aspect of the incision, which, in a similar fashion, was grasped, tented up with Rayo clamps and the rectus muscles were dissected off bluntly, aided with Palomo scissors. The rectus muscles were then at the midline. The peritoneum was identified, and entered sharply. The peritoneal incision was then extended horizontally, superiorly and inferiorly, with good visualization of the bladder. The Jesus retractor was then inserted. The vesicouterine peritoneum was then identified, grasped with pick-ups, and entered sharply with Metzenbaum scissors. This incision was then extended laterally and the bladder flap was created digitally. The lower uterine segment was incised in a transverse fashion with the scalpel. The uterine incision was then extended manually in a cephalad/caudad direction. The amniotic sac was artificially ruptured, productive of meconium-stained fluid. The infant?s head delivered atraumatically through the hysterotomy without difficulty, followed by the body.? The cord was doubly clamped and cut after a 60sec delay with the infant handed off to the waiting pediatrics team. The placenta was then removed spontaneously with gentle traction on the umbilical cord. The uterus was then left in-situ and cleared of all clots and debris. The uterine incision was repaired with 0-vicryl in a running, locked fashion with excellent hemostasis achieved. The paracolic gutters were cleared of all clot and debris. The Jesus retractor was then removed. The fascia was reapproximated with 0-vicryl in a running fashion. The subcutaneous layer was closed with 3-0 vicryl in a running 2-layer fashion. The skin was closed with 4-0 monocryl in a subcuticular fashion. The incision was then dressed with steri-strips and a pressure dressing was applied. At the completion of the case, a Crede maneuver was performed with good uterine tone and minimal vaginal bleeding noted.? The patient tolerated the procedure well. Sponge, lap and needle counts were correct x3. The patient was taken to the recovery room in stable condition. Complications: none Baby 1: Delivery Date: 01/26/25 Delivery Time: 09:43 Infant Gender: Female Presentation: vertex Post-operative Condition: stable Disposition: PACU Aftercare: routine postop
--- NOTE | 2025-01-26 10:51 | SUR.PHASEI ---
Patient transferred to with baby on breast feeding with Montse RN at bedside. SBAR report with fundal checks together.
[2025-01-26] MEDS: LACTATED RINGERS 1,000 ML 150 ML IV (10:53)
[2025-01-26] MEDS: OXYCODONE IR 5 MG TABLET PO ×4 (13:25→22:11)
[2025-01-26] MEDS: KETOROLAC 30 MG/ML VIAL IV ×2 (15:55→22:09)
[2025-01-26] MEDS: ACETAMINOPHEN 325 MG TABLET 650 MG PO ×2 (17:00→23:01)
[2025-01-27] MEDS: KETOROLAC 30 MG/ML VIAL IV (04:07)
[2025-01-27] MEDS: ACETAMINOPHEN 325 MG TABLET 650 MG PO ×4 (05:08→23:34)
[2025-01-27 06:26] LABS: Add Manual Diff / Slide Review NO; Hematocrit 30.8 % (36-46); Hemoglobin 10.5 g/dL (12.0-16.0); Lymphocytes Absolute Auto 1900 /uL (1100-4500); Mean Corpuscular HGB Conc 34.1 % (30-36); Mean Corpuscular Hemoglobin 29.5 PG (26-34); Mean Corpuscular Volume 86.6 fL (80-100); Platelet Count 222 X10^3/uL (150-400)
[2025-01-27] MEDS: OXYCODONE IR 5 MG TABLET PO ×3 (07:19→16:08)
[2025-01-27] MEDS: IBUPROFEN 600 MG TABLET PO ×3 (11:05→23:33)
[2025-01-27] MEDS: DOCUSATE 100 MG CAPSULE PO (11:05)
[2025-01-27] MEDS: PRENATAL VIT,CALC/IRON/FOLIC 1 TABLET 1 TAB PO (11:05)
--- NOTE | 2025-01-27 15:16 | PM.OBPN.1 ---
Subjective - OB Subjective Patient comments: no complaints and pain well controlled baby status: nursing well Narrative: Patient doing well this am. no complaints. + flatus and ambulating without difficulty. + spontaneous urination. Baby healthy in room. Date Patient Seen: 01/27/25 Time Patient Seen: 15:19 Exam Vital Signs (past 8 hours): BP 101/60, P- 73bpm, R 16/min Oxygen Delivery Method Room Air Narrative Exam Narrative: incision- skin intact, no drainage or erythema. healing well Const General: cooperative, healthy appearing, comfortable and well developed Orientation: alert, awake and oriented x3 GI Palpation: soft Objective ECG Impression: Patient is a 29yo s/p RLTCS 1. POD #1 - doing well - vital signs appropriate - meeting post op milestones - Rx motrin, tylenol, oxycodone sent to pharmacy dispo- clear for discharge today if patient desires discharge, otherwise can stay until tomorrow am for discharge. f/u scheduled in 1wk for incision check Labs 01/27/25 06:18 Labs: Laboratory Results - last 24 hr 01/27/25 06:18 WBC 12.8 H RBC 3.55 L Hgb 10.5 L Hct 30.8 L MCV 86.6 MCH 29.5 MCHC 34.1 RDW 13.4 Plt Count 222 Neut % (Auto) 72.1 Lymph % (Auto) 15.3 L Crawford % (Auto) 11.1 Eos % (Auto) 1.2 L Baso % (Auto) 0.3 Neut # (Auto) 9200 H Lymph # (Auto) 1900 Crawford # (Auto) 1400 H Eos # (Auto) 200 Baso # (Auto) 0 Assessment & Plan Plan day: 1 plan OB: routine postop care and discharge home Time-Based Coding :: [TOTAL MINUTES] spent with patient and on the chart (including review of chart, obtaining history, exam, reviewing outside data, placing orders, documenting exam and treatment plan, and counseling patient) on [DATE].
[2025-01-27] MEDS: OXYCODONE IR 10 MG TABLET PO (20:05)
[2025-01-28] MEDS: OXYCODONE IR 10 MG TABLET PO ×2 (02:16→09:38)
[2025-01-28] MEDS: ACETAMINOPHEN 325 MG TABLET 650 MG PO ×2 (05:35→11:54)
[2025-01-28] MEDS: IBUPROFEN 600 MG TABLET PO ×2 (05:36→11:53)
--- NOTE | 2025-01-28 08:59 | PM.OBDS.1 ---
Discharge Providers Provider Date of admission: 01/26/25 07:10 Discharge Date: 01/28/25 Primary care physician: Meghan BARBA Provider Consults: 01/26/25 11:36 Consult to Air Crew Member Routine Comment: Discharge provider: Skye Fuentes DO Summary Hospital Course Date Patient Seen: 01/28/25 Time Patient Seen: 08:40 Diagnoses: Term gestation at 39+3wks History of prior section Obesity History of herpes simplex virus Hospital Course: 29yo [id number] admitted at 39+3wks admitted for repeat section. Her delivery was uncomplicated, and productive of a viable female . Her course was unremarkable. On post-op day #2, she was ambulating, tolerating regular diet, voiding spontaneously with minimal lochia. Her pain was well controlled with oral medications, thus she was discharged to home on post-op day #2. Peripartum Data Delivery Method: Section Procedures: External monitoring Neuraxial anesthesia Repeat section complications: none [place] 1: Gender: Female Disposition of : home Discharge Diagnosis (1) Delivery by section using transverse incision of lower segment of uterus: Status: Acute (2) Single live : Status: Acute (3) Obesity affecting : Status: Acute (4) Herpes simplex infection during : Status: Acute (5) 39 weeks gestation of : Status: Acute Status at Discharge Cognitive/behavioral status at discharge: oriented Functional status at discharge: independent ambulation Overall status at discharge: patient is progressing back to baseline Time Spent with Patient Time attestation: Total time spent providing and/or coordinating discharge services: Time spent: Less than 30 minutes Objective Labs 01/27/25 06:18 Exam Vital Signs (past 8 hours): Oxygen Delivery Method Room Air vitals reviewed in OBIX, within normal parameters Const General: cooperative, healthy appearing, comfortable and No acute distress Resp Effort & Inspection: normal respiratory effort and able to speak in complete sentences GI Inspection: normal to inspection Other: fundus firm and nontender at U-2 Skin General: no rashes or lesions noted Other: Pfannenstiel incision clean/dry/intact Neuro General: patient alert and patient awake Extrem General: normal to inspection, no pedal edema and no calf tenderness Psych Mood: congruent mood Affect: normal affect Discharge Plan Discharge Plan Patient Disposition: Home Provider Discharge Comment: Take ibuprofen 600mg every 6hrs and acetaminophen 650mg every 6hrs for pain. Use oxycodone 5mg every 4hrs as needed for severe pain. Avoid lifting greater than 20lbs for at least 4wks. Avoid placing anything in the vagina for 6wks. Discharge orders & Medications Prescriptions: New acetaminophen 325 mg Tablet 650 mg PO Q6H 10 Days Qty: 80 0RF docusate sodium 100 mg Capsule 100 mg PO DAILY 10 Days Qty: 20 1RF ibuprofen 600 mg Tablet 600 mg PO Q6H 7 Days Qty: 28 0RF oxycodone 5 mg tablet 5 mg PO BID PRN (Reason: pain) 7 Days Qty: 10 0RF Continued ketoconazole 2 % shampoo 1 applic topical 2XW valacyclovir 500 mg tablet 500 mg PO BID Qty: 60 0RF Vitamin 27 mg iron- 800 mcg tablet 1 tab PO DAILY Follow up/Referrals: Skye Fuentes DO [Physician, [facility]] Referral Note: February 02, 2025 check in at 1:45pm for your 2:00pm incision check appointment with Dr. Fuentes. March 08, 2025 check in at 1:15pm for your 1:30pm [address] Fuentes. Diet/Activity/Treatments Diet: Diet as Tolerated Activity: Ambulate as tolerated. Skin/Wound/Dressing Care Skin care: You may shower normally. Report to your healthcare provider any signs of infection, such as:: chills, fever, increased pain, unusual drainage and unusual redness Visit Report/Discharge Packet Instructions: DI for , DI for Prescription Opioid Use Stand Alone Forms: Patient Portal/API, Stroke Signs & Symptoms Discharge Data Primary Care Provider: ProviderMeghan
[2025-01-28] MEDS: DOCUSATE 100 MG CAPSULE PO (09:39)
[2025-01-28] MEDS: PRENATAL VIT,CALC/IRON/FOLIC 1 TABLET 1 TAB PO (09:39)
== END 2025-01-28 12:35 | disposition home or self-care (01) | DRG 787 ==
PROVIDERS: Admitting Provider Student in an Organized Health Care Education/Training Program; Referring Provider Student in an Organized Health Care Education/Training Program; Visit Provider Student in an Organized Health Care Education/Training Program
PROC: 10D00Z1 Extraction of Products of Conception, Low, Open Approach (ICD-10-PCS; CPT 59514; principal; 2025-01-26 09:00)
DX: O34.219 Maternal care for unspecified type scar from previous cesarean delivery (principal); O98.52 Other viral diseases complicating childbirth; Z3A.39 39 weeks gestation of pregnancy; B00.9 Herpesviral infection, unspecified; Z37.0 Single live birth; O99.214 Obesity complicating childbirth; E66.9 Obesity, unspecified
CPT/HCPCS: 36415; 59050; 85025; 86850; 86900; 86901; J0131; J0690; J1885; J2274; J2704